=== PATIENT | male | born 1990 ===

== ENCOUNTER 2018-05-07 17:28 | Emergency (ER) | payer OTHER ==
[2018-05-07 19:07] LABS: URINE BILIRUBIN NEGATIVE (NEGATIVE); URINE BLOOD SMALL (NEGATIVE); URINE CLARITY CLEAR (Clear); URINE COLOR STRAW (YELLOW); URINE GLUCOSE (UA) NEG (NEGATIVE); URINE LEUKOCYTE ESTERASE MOD Leu/uL (Negative); URINE PROTEIN NEGATIVE (NEGATIVE); URINE UROBILINOGEN 0.2-1.0 mg/dL (0.2-1.0)
--- NOTE | 2018-05-07 19:12 | ED PDOC ---
HPI: Male Pain Time Seen by Provider: 05/07/18 18:40 Chief Complaint (Nursing): Male Genitourinary Chief Complaint (Provider): Urine problems History Per: Patient, [employer] ([id number]) History/Exam Limitations: no limitations Onset/Duration Of Symptoms: Days (1) Current Symptoms Are (Timing): Still Present Quality Of Discomfort: "Pain" Associated Symptoms: Urinary Symptoms Additional Complaint(s): 28yo male, otherwise well, comes to ER reporting dysuria, burning upon urination, and 1 episode of hematuria since yesterday. He denies any abdominal pain or back pain. He also denies any fever, chills, shortness of breath, vomiting, nausea. Patient states he is sexually active, states he uses condoms and is not concerned regarding STI. Patient denies any testicular pain, penile discharge, or other complaints. PMD: None provided Past Medical History Reviewed: Historical Data, Nursing Documentation, Vital Signs Vital Signs: Last Vital Signs Temp 98.8 F 05/07/18 18:16 Pulse 75 05/07/18 18:16 Resp 18 05/07/18 18:16 BP 149/93 H 05/07/18 18:16 Pulse Ox 99 05/07/18 18:16 - Medical History PMH: No Chronic Diseases - Surgical History Surgical History: No Surg Hx - Family History Family History: States: No Known Family Hx - Home Medications Home Medications: Ambulatory Orders Medication Instructions Recorded Cephalexin [Keflex] 500 mg PO TID 7 Days #21 capsule 05/07/18 - Allergies Allergies/Adverse Reactions: Allergies Allergy/AdvReac Type Severity Reaction Status Date / Time No Known Allergies Allergy Verified 05/07/18 18:16 Review of Systems ROS Statement: Except As Marked, All Systems Reviewed And Found Negative Constitutional: Negative for: Fever, Chills Gastrointestinal: Negative for: Nausea, Vomiting, Abdominal Pain, Diarrhea Genitourinary Male: Positive for: Dysuria, Hematuria. Negative for: Penile Discharge, Scrotal Pain, Penile Pain Musculoskeletal: Negative for: Back Pain Physical Exam - Reviewed Nursing Documentation Reviewed: Yes Vital Signs Reviewed: Yes - Physical Exam Comments: GENERAL APPEARANCE: Patient is awake, alert, oriented x 3, in no acute distress. SKIN: Warm, dry; (-) cyanosis. EYES: (-) conjunctival pallor. ENMT: Mucous membranes _moist. Airway patent: (-) stridor. Pharynx: (-) swelling, (-) erythema. NECK: (-) tenderness, (-) stiffness, (-) lymphadenopathy. CHEST AND RESPIRATORY: (-) wheezing; (-) rales, (-) rhonchi, (-) rub; breath sounds equal bilaterally. HEART AND CARDIOVASCULAR: (-) irregularity; (-) murmur, (-) gallop. ABDOMEN AND GI: Soft; (-) tenderness. BACK: (-) CVA tenderness EXTREMITIES: (-) deformity, (-) edema. NEURO AND PSYCH: Mental status as above; (-) focal findings. - ECG O2 Sat by Pulse Oximetry: 99 (RA) Pulse Ox Interpretation: Normal Medical Decision Making Medical Decision Making: Dysuria, hematuria, r/o UTI Plan: -- Urinalysis -- Urine culture -- Chlamydia/GC RNA, TMA 2005 Urinalysis indicative of a UTI. Patient to be discharged home with Keflex, informed to follow up with PMD in 2-3 days. Discussed results, diagnosis, treatment, return precautions and f/u with pt who is understanding, in agreement and stable for dc Scribe Attestation: Documented by Abiola Greene, acting as a scribe for RABIA Robles Provider Scribe Attestation: All medical record entries made by the Scribe were at my direction and personally dictated by me. I have reviewed the chart and agree that the record accurately reflects my personal performance of the history, physical exam, medical decision making, and the department course for this patient. I have also personally directed, reviewed, and agree with the discharge instructions and disposition. Disposition - Clinical Impression Clinical Impression: Urinary tract infection - Patient ED Disposition Is Patient to be Admitted: No Counseled Patient/Family Regarding: Studies Performed, Diagnosis, Need For Followup, Rx Given - Disposition Referrals: [facility] [Outside] Disposition: Routine/Home Disposition Time: 20:06 Condition: STABLE Additional Instructions: Regrese a la ED para sntomas nuevos o que empeoran, fiebre> 100.4, dolor abdominal, dolor de espalda, vmitos. Mariangel un seguimiento con connor mdico de cabecera o clnica en 3-5 lipscomb. Malia antibiticos segn lo prescrito hasta terminar. Beber abundante agua.Return to ED for new or worsening symptoms, fever >100.4, abdominal pain, back pain, vomiting. Follow up with your primary doctor or clinic in 3-5 days. Take antibiotics as prescribed until finished. Drink plenty of water. Prescriptions: Cephalexin [Keflex] 500 mg PO TID 7 Days #21 capsule Instructions: Urinary Tract Infections in Adults Forms: [facility] (Yakut) Print Language: SWEDISH - POCarolyn Present On Arrival: None
[2018-05-07 20:25] VITALS: BP 119/78; PULSE 70; RESP 16; TEMP 98.6
[2018-05-08 12:19] VITALS: O2SAT 99
== END 2018-05-07 20:24 | disposition home or self-care (01) ==
LOC: H.ER 17:28 → EDSEX 17:28 → H.ER 20:24
DX: N39.0 Urinary tract infection, site not specified (principal)